=== PATIENT | female | born 1925 | race Caucasian/White ===

== ENCOUNTER 2017-07-19 10:37 | Emergency (ER) | payer MEDICARE, BC ==
[~2017-07-19] VITALS: Ht 160 cm; Wt 54.4 kg
--- NOTE | 2017-07-19 10:37 | NUR ---
BIB [facility] WITH C/O AMS, PER EMS PT'S DAUGHTER REPORTED SUDDEN ONSET OF AMS AT APPROX [address] PEREIRA AT BEDSIDE ON ARRIVAL, CODE STROKE ACTIVATED PER DR CAMPBELL ORDER.
--- NOTE | 2017-07-19 10:53 | NUR ---
Pt to CT via natalie with Jess GONZALEZ and Pino elkins with [facility] in place.
[2017-07-19 11:02] LABS: BASOPHILS % (AUTO) 0.6 % (0.0-2.0); EOSINOPHILS # (AUTO) 0.1 K/uL (0.0-0.7); EOSINOPHILS % (AUTO) 1.4 % (0.0-7.0); HEMATOCRIT 46.8 % (37-47); HEMOGLOBIN 15.1 G/DL (12.0-16.0); LYMPHOCYTES # (AUTO) 1.9 K/UL (0.8-4.8); LYMPHOCYTES % (AUTO) 32.6 % (20.5-51.5); MEAN CORPUSCULAR HEMOGLOBIN 28.9 UUG (27.0-31.0); MEAN CORPUSCULAR HGB CONC 32 g/dL (32.0-37.0); MEAN CORPUSCULAR VOLUME 89.4 FL (81.0-99.0); MONOCYTES # (AUTO) 0.4 K/UL (0.1-1.30); MONOCYTES % (AUTO) 7.6 % (0.0-11.0); NEUTROPHILS # (AUTO) 3.4 K/UL (1.8-8.9); NEUTROPHILS % (AUTO) 57.8 % (38.5-71.5); PLATELET COUNT (AUTO) 173 K/UL (150-450); RED BLOOD CELL COUNT(AUTO) 5.24 MIL/UL (4.2-5.4); WHITE BLOOD COUNT (AUTO) 5.8 K/UL (4.0-11.2)
--- NOTE | 2017-07-19 11:02 | NUR ---
Pt back from CT.
[2017-07-19 11:05] LABS: CARBON DIOXIDE 32 mmol/L (21-32); CHLORIDE 103 mmol/L (98-107); CREATININE 0.8 mg/dL (0.6-1.3); GLUCOSE 99 mg/dL (74-106); POTASSIUM 4.4 mmol/L (3.5-5.1); UREA NITROGEN, BLOOD 22 mg/dL (7-18)
[2017-07-19 11:11] LABS: ALANINE AMINOTRANSFERASE 24 U/L (14-59); ALKALINE PHOSPHATASE 98 U/L (50-136); ASPARTATE AMINOTRANSFERASE 31 U/L (15-37); BILIRUBIN,DIRECT 0.1 mg/dL (0.0-0.2); BILIRUBIN,TOTAL 0.5 mg/dL (0.2-1.0); TOTAL PROTEIN, SERUM 7.9 g/dL (6.4-8.2)
[2017-07-19] MEDS ORDERED: LORAZEPAM 2 MG/1 ML VIAL IV ONE (11:15)
[2017-07-19] MEDS ORDERED: LEVETIRACETAM IV 1,000 MG in IV DEXTROSE 5% 100 ML IV ONE (11:15)
[2017-07-19] MEDS ORDERED: LEVO75TA7 PO (11:16)
[2017-07-19] MEDS ORDERED: DIGO125T PO (11:16)
[2017-07-19] MEDS ORDERED: LUTE20CA PO (11:16)
[2017-07-19] MEDS ORDERED: ATOR10TA PO (11:16)
[2017-07-19] MEDS ORDERED: WARF3TAB29 PO (11:16)
[2017-07-19] MEDS ORDERED: DOCU100C36 PO (11:16)
[2017-07-19] MEDS ORDERED: CYAN-10 IJ (11:16)
[2017-07-19] MEDS ORDERED: AMLO5TAB2 PO (11:16)
[2017-07-19] MEDS: LABETALOL HCL 100 MG/20 ML VIAL IV ONE ×2 (11:17→11:47)
[2017-07-19] MEDS ORDERED: LORAZEPAM 2 MG/1 ML VIAL ONE (11:17)
[2017-07-19] MEDS ORDERED: LABETALOL HCL 100 MG/20 ML VIAL ONE (11:28)
--- NOTE | 2017-07-19 11:34 | NUR ---
Pt noted with seizure at 1102.Seizures ended at 1104.Pt protected from injury.Pt remains responsive to noxious stimuli.Medicated with Ativan 2mg IV.Continue to monitor.
[2017-07-19] MEDS ORDERED: IOHEXOL 350 100 ML INFUS..BTL ONE (11:40)
[2017-07-19] MEDS ORDERED: IV NORMAL SALINE 250 ML IV ONE (11:40)
--- NOTE | 2017-07-19 11:40 | NUR ---
Pt transferred to CT for CTA connected to monitor accompany by EMT.
--- NOTE | 2017-07-19 11:45 | NUR ---
Called [facility] ) per request, spoke with Johnny. Face sheet faxed to [phone] as requested.
--- NOTE | 2017-07-19 12:03 | NUR ---
Pt is back from CT.Remains to be unresponsive.Connected to monitor.Afib on monitor.No s/s of respiratory distress.VS WNL.No seizure activity noted. Pt son at bedside with .Pt son requested to transfer pt to [facility].
--- NOTE | 2017-07-19 12:28 | NUR ---
Pt son's ( who is a physician ) in to see pt, spoke with . Decision was made to give t-PA, pt's son signed the consent.
[2017-07-19] MEDS ORDERED: ALTEPLASE 100 MG VIAL IV ONE ×2 (12:30→12:45)
--- NOTE | 2017-07-19 12:47 | NUR ---
TPA started.Consent given by pt son.Will continue to monitor.
--- NOTE | 2017-07-19 13:00 | NUR ---
Received call from [place] transfer center who stated they have arranged for transport to pick the pt up from the ER, eta 1 hr.
--- NOTE | 2017-07-19 13:35 | NUR ---
TPA infusing.No s/s of bleeding noted.Spoke with LISA Reeder from [facility] ambulance.Detailed report given.
[2017-07-19] MEDS ORDERED: METOPROLOL TARTRATE 5 MG/5 ML VIAL IVP ONE ×2 (14:00→14:01)
--- NOTE | 2017-07-19 14:02 | NUR ---
TPA completed.NO s/s of bleeding noted.Report given to LISA Van from [facility] ICU.
--- NOTE | 2017-07-19 14:29 | NUR ---
Pt appears more awake,responsive.Moving all extremities.
--- NOTE | 2017-07-19 14:30 | NUR ---
Received call from Bing from [facility] who stated their team will not be picking up the pt and that [facility] transfer center will arrange transport and call us with further information.
--- NOTE | 2017-07-19 15:58 | NUR ---
Report given to LISA Barrett from [facility] over the phone.Awaiting for transporting pt to [facility].
[2017-07-19] MEDS ORDERED: IV NS 1000 ML 1,000 ML IV ONE (16:00)
--- NOTE | 2017-07-19 16:27 | NUR ---
Pt transferred to [facility] via Critical Care transport.Report given to LISA Barrett.
[2017-07-19 16:30] VITALS: BP 166/82
== END 2017-07-19 16:40 | disposition short-term general hospital (02) ==
LOC: ER 10:37
DX: R47.01 Aphasia (principal); I48.91 Unspecified atrial fibrillation; R56.9 Unspecified convulsions; I10 Essential (primary) hypertension; Z79.01 Long term (current) use of anticoagulants; F80.9 Developmental disorder of speech and language, unspecified; I70.0 Atherosclerosis of aorta
CPT/HCPCS: 36415; 70030-TC; 70450; 70496; 71010; 85025; 85730; 86850; 86900; 86901; 93005; A4663; J1953; J2060; J2997; J3490; J7030; J7050; J7060; Q9967